=== PATIENT | male | born 1975 | race Caucasian/White ===

== ENCOUNTER 2025-02-25 14:35 | Emergency (ER) | payer MEDICAID ==
[~2025-02-25] VITALS: Ht 170.2 cm; Wt 86.0 kg
[2025-02-25 14:40] VITALS: O2SAT 98
[2025-02-25 14:42] VITALS: BP 119/72; PULSE 72; RESP 20; TEMP 36.8; O2SAT 99
[2025-02-25 15:59] LABS: BASOPHILS % 0.5 % (0.0-2.0); EOSINOPHILS % 2.4 % (0.0-5.0); HEMATOCRIT. 41.5 % (42.0-52.0); HEMOGLOBIN. 14.1 g/dL (14.0-18.0); LYMPHOCYTES % 14.9 % (20.0-50.0); MEAN CORPUSCULAR HEMOGLOBIN 28.6 pg (28.0-32.0); MEAN CORPUSCULAR HGB CONC 33.9 g/dL (31.0-37.0); MEAN CORPUSCULAR VOLUME 84.3 fL (80.0-94.0); MEAN PLATELET VOLUME 10.4 fl (7.4-10.4); MONOCYTES % 5.9 % (2.0-8.0); NEUTROPHILS % 76.3 % (40.0-76.0); PLATELET 110 x1000/uL (130-400); RED BLOOD CELL COUNT 4.92 mill/uL (4.7-6.1); RED CELL DISTRIBUTION WIDTH 14.1 % (11.6-14.6); WHITE BLOOD COUNT 7.4 x1000/uL (4.5-11.0)
[2025-02-25 16:09] LABS: INR 3.2; PARTIAL THROMBOPLASTIN TIME 63.2 sec (23.4-31.0); PROTHROMBIN TIME 30.4 sec (9.6-11.0)
[2025-02-25 16:10] LABS: CHLORIDE 109 mEq/L (98-107); POTASSIUM 4.1 mEq/L (3.5-5.1); SODIUM 142 mEq/L (136-145)
[2025-02-25 16:11] LABS: CARBON DIOXIDE 27 mEq/L (21-32)
[2025-02-25 16:16] LABS: CREATININE 1.2 mg/dL (0.6-1.3); GLUCOSE 99 mg/dL (70-105)
[2025-02-25 16:17] LABS: UREA NITROGEN BLOOD 21 mg/dL (9-23)
== END 2025-02-25 18:00 | disposition home or self-care (01) ==
LOC: ER 14:35
DX: R04.0 Epistaxis (principal); Z98.890 Other specified postprocedural states; Z86.73 Personal history of transient ischemic attack (TIA), and cerebral infarction without residual deficits
CPT/HCPCS: 30901; 36415; 80048; 85025; 99283; 99284

== ENCOUNTER 2025-02-27 18:26 | Emergency (ER) | payer MEDICAID ==
[~2025-02-27] VITALS: Ht 167.6 cm; Wt 101.0 kg
[2025-02-27 18:41] VITALS: O2SAT 99
[2025-02-27 20:14] LABS: BASOPHILS % 0.5 % (0.0-2.0); EOSINOPHILS % 3.4 % (0.0-5.0); HEMATOCRIT. 40.7 % (42.0-52.0); LYMPHOCYTES % 25.9 % (20.0-50.0); MEAN CORPUSCULAR HEMOGLOBIN 28.6 pg (28.0-32.0); MEAN CORPUSCULAR HGB CONC 34.4 g/dL (31.0-37.0); MEAN CORPUSCULAR VOLUME 83.1 fL (80.0-94.0); MEAN PLATELET VOLUME 10.5 fl (7.4-10.4); MONOCYTES % 9.6 % (2.0-8.0); NEUTROPHILS % 60.6 % (40.0-76.0); PLATELET 114 x1000/uL (130-400); RED CELL DISTRIBUTION WIDTH 13.7 % (11.6-14.6)
[2025-02-27 20:32] LABS: INR 1.4; PARTIAL THROMBOPLASTIN TIME 58.6 sec (23.4-31.0)
[2025-02-27] MEDS: TRANEXAMIC ACID 1,000MG/10ML TP ONE (20:32)
[2025-02-27] MEDS ORDERED: OXYM30SP26 BOTHNSTRLS (20:47)
[2025-02-27] MEDS ORDERED: MOXI3DRO12 RIGHTEYE (20:47)
[2025-02-27 21:25] VITALS: BP 117/77; PULSE 74; RESP 18; TEMP 36.7; O2SAT 99
== END 2025-02-27 21:25 | disposition home or self-care (01) ==
LOC: ER 18:26
DX: R04.0 Epistaxis (principal); H10.9 Unspecified conjunctivitis; D68.61 Antiphospholipid syndrome; Z86.73 Personal history of transient ischemic attack (TIA), and cerebral infarction without residual deficits
CPT/HCPCS: 36415; 85025; 99283